=== PATIENT | female | born 1950 | race Caucasian/White ===

== ENCOUNTER 2019-06-23 11:12 | Day surgery (SDC) | payer MEDICARE, BC ==
[~2019-06-23] VITALS: Ht 157.5 cm; Wt 59.9 kg
[2019-06-23 12:19] VITALS: BP 109/70
[2019-06-23] MEDS ORDERED: FLUO40CA9 PO (12:38)
[2019-06-23] MEDS ORDERED: TAMS-11 PO (12:38)
[2019-06-23] MEDS ORDERED: DITROPAN PO (12:38)
[2019-06-23] MEDS ORDERED: TRAZ-175 PO (12:38)
[2019-06-23] MEDS ORDERED: ARIP15TA3 PO (12:38)
[2019-06-23] MEDS ORDERED: CEPH-367 PO (12:38)
[2019-06-23] MEDS ORDERED: PANT40TA3 PO (12:38)
[2019-06-23] MEDS ORDERED: LACTATED RINGERS 1,000 ML IV SCH (13:00)
[2019-06-23 13:07] LABS: MICROSCOPIC INDICATED
[2019-06-23 13:29] LABS: INTERNATIONAL NORMALIZED RATIO 1.03 (0.93-1.1); PROTHROMBIN TIME 10.9 Seconds (9.6-11.5)
[2019-06-23] MEDS ORDERED: FENTANYL PF 100 MCG/2ML ONE ×2 (14:18→15:51)
[2019-06-23] MEDS ORDERED: MIDAZOLAM 1 MG/ML, 2ML ONE (14:18)
[2019-06-23] MEDS ORDERED: LIDOCAINE-MPF 2% ,5ML ONE (14:35)
[2019-06-23] MEDS ORDERED: ONDANSETRON 2MG/ML, 2ML IV PRN (15:00)
[2019-06-23] MEDS ORDERED: LABETALOL 5MG/ML, 20ML IV PRN (15:00)
[2019-06-23] MEDS ORDERED: hydrALAzine 20 MG/ML, 1ML IV PRN (15:00)
[2019-06-23] MEDS ORDERED: HYDROmorphone 2 MG/ML, 1ML IVPush PRN (15:00)
[2019-06-23] MEDS ORDERED: ONDANSETRON ODT 8 MG PO PRN (15:00)
[2019-06-23] MEDS ORDERED: NYSTATIN TOPICAL POWDER 15GM TP PRN (15:00)
[2019-06-23] MEDS ORDERED: LORazepam 2 MG/ML, 1ML IVPush PRN (15:00)
[2019-06-23] MEDS ORDERED: PROMETHAZINE 25 MG SUPP PR PRN (15:00)
[2019-06-23] MEDS ORDERED: ACETAMINOPHEN 325 MG TABLET PO PRN (15:00)
[2019-06-23] MEDS ORDERED: OXYcodone 5 MG/5 ML ORAL.SOL UDC PO PRN (15:00)
[2019-06-23] MEDS ORDERED: PROMETHAZINE 25 MG/ML, 1ML IV PRN (15:00)
[2019-06-23] MEDS ORDERED: PROPOFOL 10 MG/ML, 20ML ONE (15:08)
[2019-06-23] MEDS ORDERED: CEFAZOLIN 1,000 MG ONE (15:08)
[2019-06-23] MEDS ORDERED: ONDANSETRON 2MG/ML, 2ML ONE (15:08)
[2019-06-23] MEDS ORDERED: DEXAMETHASONE 4 MG/ML, 1ML ONE (15:08)
[2019-06-23] MEDS ORDERED: OXYcodone 5 MG/5 ML ORAL.SOL UDC ONE (15:51)
[2019-06-23] MEDS ORDERED: ACETAMINOPHEN 650 MG/20.3 ML UDC ONE (15:51)
[2019-06-23] MEDS: FENTANYL PF 100 MCG/2ML IV PRN ×2 (15:56→16:02)
== END 2019-06-23 17:48 | disposition home or self-care (01) ==
LOC: OUT 11:12
PROVIDERS: ATTEND Student in an Organized Health Care Education/Training Program
DX: N20.0 Calculus of kidney (principal); N11.1 Chronic obstructive pyelonephritis; K21.9 Gastro-esophageal reflux disease without esophagitis; F31.9 Bipolar disorder, unspecified; Z79.01 Long term (current) use of anticoagulants; Z79.899 Other long term (current) drug therapy; Z87.442 Personal history of urinary calculi; Z88.6 Allergy status to analgesic agent; Z88.8 Allergy status to other drugs, medicaments and biological substances; Z91.013 Allergy to seafood; Z85.038 Personal history of other malignant neoplasm of large intestine
CPT/HCPCS: 36415; 52356; 74018; 81001; 82360; 85610; 87086; 88300; 93005; C1769; C2617; J0690; J1100; J2250; J2405; J2704; J3010; J7120; 76000